=== PATIENT | female | born 1930 | race Caucasian/White ===

== ENCOUNTER 2016-11-26 13:51 | Emergency (ER) | payer OTHER ==
[2016-11-26 13:59] VITALS: BP 140/76; TEMP 99.2; BMI 21.0
[2016-11-26 15:31] LABS: BASOPHILS # (AUTO) 0.1 K/uL (0-0.2); BASOPHILS % (AUTO) 0.6 % (0.0-3.0); EOSINOPHILS # (AUTO) 0.2 K/ul (0.0-0.7); EOSINOPHILS % (AUTO) 1.4 % (0.0-7.0); HEMATOCRIT 37.2 % (37.0-47.0); IMMATURE GRANULOCYTE % (AUTO) 0.5 % (0.0-5.0); LYMPHOCYTES # (AUTO) 1.9 K/uL (0.60-3.4); LYMPHOCYTES % (AUTO) 12.8 (10.0-50.0); MEAN CORPUSCULAR HEMOGLOBIN 28.8 pg (27.0-31.0); MEAN CORPUSCULAR HGB CONC 32.3 (31.8-35.4); MEAN CORPUSCULAR VOLUME 89.2 fl (81.0-99.0); MONOCYTES # (AUTO) 1.3 K/uL (0.4-2.0); MONOCYTES % (AUTO) 8.9 (0-10); NEUTROPHILS # (AUTO) 11.3 K/ul (2.0-6.9); NEUTROPHILS % (AUTO) 75.8; PLATELET COUNT 303 10^3/uL (140-440); RED BLOOD COUNT 4.17 10^6/ul (4.20-5.40); WHITE BLOOD COUNT 14.88 K/ul (4.6-10.2)
[2016-11-26 15:53] LABS: FLU INTERNAL QC INTERNAL QC VALID; RAPID FLU A NEGATIVE (NEGATIVE); RAPID FLU B NEGATIVE (NEGATIVE)
[2016-11-26 15:57] LABS: ALANINE AMINOTRANSFERASE 12 U/L (12-78); ALBUMIN 3.3 g/dL (3.4-5.0); ALBUMIN/GLOBULIN RATIO 0.97; ALKALINE PHOSPHATASE 83 U/L (53-141); ANION GAP 11.6; ASPARTATE AMINO TRANSFERASE 15 U/L (15-37); BILIRUBIN,TOTAL 0.37 mg/dL (0.00-1.20); BLOOD UREA NITROGEN 14 mg/dL (7-18); CARBON DIOXIDE 26 mmol/L (23-31); CHLORIDE 106 mmol/L (98-107); CREATINE KINASE 28 U/L; GLUCOSE 103 mg/dL (82-115); POTASSIUM 4.6 mmol/L (3.5-5.10); SODIUM 139 mmol/L (136-145); TOTAL PROTEIN 6.7 g/dL (5.8-8.1)
--- NOTE | 2016-11-26 16:00 | DI ---
EXAM: Chest two views HISTORY: Cough COMPARISON: None TECHNIQUE: Two views of the chest were performed FINDINGS: The lungs are clear. There is no pleural effusion or pneumothorax. The heart is normal in size. 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 The mediastinal contour is normal. Right hilar granulomatous c alcification. There are median sternotomy wires. There are no acute abnormalities of the bones. IMPRESSION: No acute cardiopulmonary process.
[2016-11-26] MEDS ORDERED: PREDNISONE PO STA (16:57)
[2016-11-26] MEDS ORDERED: ZITHROMAX PO STA (16:57)
--- NOTE | 2016-11-26 17:00 | ED.PDOC ---
General ED Provider: Dr. MAKENNA WISDOM Chief Complaint: Respiratory Complaint Stated Complaint: cough, flu like symptoms Time Seen by Physician: 14:00 Mode of Arrival: Walk-In Information Source: Patient, Family Exam Limitations: No limitations Primary Care Provider: CHERYL TELLO Nursing and Triage Documentation Reviewed and Agree: Yes Respiratory Complaint Exam - Respiratory Complaint/Exam Symptoms Are: Resolved Timing: Intermittent Initial Severity: Moderate Current Severity: Mild Location: Nose, Throat, Chest Character: Reports: Non-productive cough Alleviating: Reports: Spontaneous resolution Associated Signs and Symptoms: Reports: Nasal congestion, Sore throat, Decreased oral intake History of Healthcare-Acquired Pneumonia: No Related Surgical History: Reports: None Pulmonary Embolism Risk Factors: None Review of Systems - Review Of Systems Constitutional: Reports: Malaise, Weakness, Loss of appetite Eyes: Reports: No symptoms Ears, Nose, Mouth, Throat: Reports: Throat pain Respiratory: Reports: Cough Cardiac: Reports: No symptoms GI: Reports: No symptoms : Reports: No symptoms Musculoskeletal: Reports: No symptoms Skin: Reports: No symptoms Neurological: Reports: No symptoms Endocrine: Reports: No symptoms Hematologic/Lymphatic: Reports: No symptoms All Other Systems: Reviewed and Negative Past Medical History - Past Medical History Previously Healthy: No Endocrine: Reports: None Cardiovascular: Reports: Hypertension Respiratory: Reports: None Hematological: Reports: None Gastrointestinal: Reports: GERD Genitourinary: Reports: None Neuro/Psych: Reports: None Musculoskeletal: Reports: None Cancer: Reports: None Last Menstrual Period: menopause - Surgical History General Surgical History: Reports: None - Family History Family History: Reports: None - Social History Smoking Status: Never smoker Hx Substance Use: No Alcohol Screening: None Physical Exam - Physical Exam Appearance: Well-appearing, No pain distress, Well-nourished Eyes: CORBY, EOMI, Conjunctiva clear ENT: Ears normal, Nose normal, Oropharynx normal Respiratory: Airway patent, Breath sounds clear, Breath sounds equal, Respirations nonlabored Cardiovascular: RRR, Pulses normal, No rub, No murmur GI/: Soft, Nontender, No masses, Bowel sounds normal, No Organomegaly Musculoskeletal: Normal strength, ROM intact, No edema, No calf tenderness Skin: Warm, Dry, Normal color Neurological: Sensation intact, Motor intact, Reflexes intact, Cranial nerves intact, Alert, Oriented Psychiatric: Affect appropriate, Mood appropriate Interpretation - Radiology Interpretation Radiology Interpretation By: Radiologist Radiology Results: No acute changes Critical Care Note - Critical Care Note Total Time (mins): 0 Course - Course Hematology/Chemistry: 11/26/16 15:23 11/26/16 15:23 Orders, Labs, Meds: Lab Review 11/26/16 11/26/16 15:23 15:30 WBC 14.88 H RBC 4.17 L Hgb 12.0 Hct 37.2 MCV 89.2 MCH 28.8 MCHC 32.3 RDW Coeff of Rosemary 13.9 Plt Count 303 Immature Gran % (Auto) 0.5 Neut % (Auto) 75.8 Lymph % (Auto) 12.8 [place] % (Auto) 8.9 Eos % (Auto) 1.4 Baso % (Auto) 0.6 Immature Gran # (Auto) 0.1 Neut # 11.3 H Lymph # 1.9 [place] # 1.3 Eos # 0.2 Baso # 0.1 Sodium 139 Potassium 4.6 Chloride 106 Carbon Dioxide 26 Anion Gap 11.6 BUN 14 Creatinine 0.80 Estimated GFR (MDRD) 68.00 BUN/Creatinine Ratio 17.50 Glucose 103 Calcium 9.0 Total Bilirubin 0.37 AST 15 ALT 12 Alkaline Phosphatase 83 Total Creatine Kinase 28 Troponin I < 0.0100 Total Protein 6.7 Albumin 3.3 L Globulin 3.4 Albumin/Globulin Ratio 0.97 Influenza A (Rapid) Negative Influenza B (Rapid) Negative Orders Category Date Time Status CBC W/ AUTO DIFF Stat LAB 11/26/16 15:23 Completed COMPREHENSIVE METABOLIC PANEL Stat LAB 11/26/16 15:23 Completed CREATINE KINASE Stat LAB 11/26/16 15:23 Completed MOLECULAR GROUP A STREP Stat LAB 11/26/16 15:30 Results RAPID FLU A/B Stat LAB 11/26/16 15:30 Completed STREP SCREEN Stat LAB 11/26/16 15:30 Results TROPONIN I Stat LAB 11/26/16 15:23 Completed Azithromycin [Zithromax] MEDS 11/26/16 16:57 Stat 500 mg PO ONCE STA Prednisone MEDS 11/26/16 16:57 Stat 20 mg PO ONCE STA CHEST, 2 VIEWS PA & LAT Stat RADS 11/26/16 15:22 Completed Medications Discontinued Medications Generic Name Dose Route Start Last Admin Trade Name Freq PRN Reason Stop Dose Admin Azithromycin 500 mg 11/26/16 16:57 Zithromax PO 11/26/16 16:58 ONCE STA Prednisone 20 mg 11/26/16 16:57 Prednisone PO 11/26/16 16:58 ONCE STA Vital Signs: Temp Pulse Resp BP Pulse Ox 11/26/16 13:51 99.2 F 78 20 140/76 98 Departure - Departure Time of Disposition: 17:00 Disposition: HOME SELF-CARE Discharge Problem: Bronchitis Instructions: Acute Bronchitis (ED), Bronchospasm (ED), Wheezing (ED), How Your Lungs Work (ED) Condition: Good Pt referred to PMD for follow-up: No Additional Instructions: Please call your Family Physician as soon as possible to schedule a follow-up appointment. Allergies/Adverse Reactions: Allergies acetaminophen [From Tylenol] Adverse Reaction (Verified 11/26/16 14:01) aspirin Adverse Reaction (Verified 11/26/16 14:01) Home Medications: Ambulatory Orders Lisinopril 10 mg PO DAILY 02/14/15 Beta-Carotene(A) W-C & E/Min [Vision Vitamins] 1 each PO DAILY 11/26/16 Calcium Carb & Citrate/Vit D3 [Citracal + D ER Tablet] 1 each PO BID 11/26/16 Cetirizine HCl [Allergy Relief] 10 mg PO DAILY 11/26/16 Cholecalciferol (Vitamin D3) [Vitamin D3] 2,000 unit PO DAILY 11/26/16 Omeprazole [Prilosec] 20 mg PO QDAC 11/26/16 Oxycodone HCl [Oxycodone] 5 mg PO Q6H 11/26/16
== END 2016-11-26 17:17 | disposition home or self-care (01) ==
LOC: ED 13:51
DX: J20.9 Acute bronchitis, unspecified (principal)
CPT/HCPCS: 36415; 80053; 82550; 84484; 85025; 87651; 87804; 87880; 99282

== ENCOUNTER 2017-08-30 16:04 | Emergency (ER) ==
[2017-08-30 16:08] VITALS: BP 165/81; TEMP 97.8; BMI 19.7
[2017-08-30] MEDS ORDERED: LIDOCAINE HCL 1% SDV SUBCUT STA (16:18)
[2017-08-30] MEDS ORDERED: ROCEPHIN IM STA (16:18)
[2017-08-30] MEDS ORDERED: DECADRON 4 MG/ML SDV IM STA (16:18)
[2017-08-30] MEDS ORDERED: ZITHROMAX PO STA (16:18)
--- NOTE | 2017-08-30 16:24 | ED.PDOC ---
General ED Provider: Dr. MAKENNA WISDOM Chief Complaint: Cough Stated Complaint: cough, flu like symptoms Time Seen by Physician: 16:00 Mode of Arrival: Walk-In Information Source: Patient Exam Limitations: No limitations Primary Care Provider: CHERYL TELLO Nursing and Triage Documentation Reviewed and Agree: Yes Reviewed sepsis parameters & appropriate labs ordered?: Yes (seen with december atll times ) System Inflammatory Response Syndrome: Not Applicable Sepsis Protocol: For patient's 13 years and over: Temp is 96.8 and below OR 101 and greater Pulse >90 BPM Resp >20/minute Acutely Altered Mental Status Are patient's symptoms suggestive of a new infection, such as: -Pneumonia -Skin, Soft Tissue -Endocarditis -UTI -Bone, Joint Infection -Implantable Device -Acute Abdominal Infection -Wound Infection -Meningitis -Blood Stream Catheter Infection -Unknown Respiratory Complaint Exam - Respiratory Complaint/Exam Onset/Duration: 2 days Symptoms Are: Still present Timing: Constant Initial Severity: Mild Current Severity: Mild Location: Nose, Throat, Chest Character: Reports: Non-productive cough Aggravating: Reports: None Associated Signs and Symptoms: Reports: URI, Nasal congestion. Denies: Rapid breathing, Dyspnea, Fever, Chills, Chest pain, Pleuritic chest pain, Wheezing, Hemoptysis, Dizziness, Calf pain, Calf swelling, Edema, Hoarseness, Sinus discomfort, Vomiting, Sore throat, Weight loss, Decreased oral intake, Increased thirst, Increased appetite Related History: Reports: Similar episode History of Healthcare-Acquired Pneumonia: No Related Surgical History: Reports: None Pulmonary Embolism Risk Factors: None Cardiac Risk Factors: Reports: Hypertension Pseudomonas Risk Factors: Reports: None Tuberculosis Risk Factors: Reports: None Status Asthmaticus Risk Factors: Reports: None Home Oxygen Use: No Recent Stress Test: No Recent Echo/LV Function: No Current Antibiotic Use: No Current Asthma Medication Use: No Respiratory Distress: None Inadequate Respiratory Effort: No Dysphagia Present: No Stridor Present: No JVD Present: No Accessory Muscle Use: No Retractions: Not Present Grunting Respirations: No Kussmaul Respirations: No Differential Diagnoses: Pneumonia, Bronchitis Review of Systems - Review Of Systems Constitutional: Reports: No symptoms Eyes: Reports: No symptoms Ears, Nose, Mouth, Throat: Reports: No symptoms Respiratory: Reports: Cough Cardiac: Reports: No symptoms GI: Reports: No symptoms : Reports: No symptoms Musculoskeletal: Reports: No symptoms Skin: Reports: No symptoms Neurological: Reports: No symptoms Endocrine: Reports: No symptoms Hematologic/Lymphatic: Reports: No symptoms All Other Systems: Reviewed and Negative Past Medical History - Past Medical History Previously Healthy: No Endocrine: Reports: None Cardiovascular: Reports: Hypertension Respiratory: Reports: None Hematological: Reports: None Gastrointestinal: Reports: GERD Genitourinary: Reports: None Neuro/Psych: Reports: None Musculoskeletal: Reports: None Cancer: Reports: None Last Menstrual Period: N/A - Surgical History General Surgical History: Reports: None - Family History Family History: Reports: None - Social History Smoking Status: Never smoker Hx Substance Use: No Alcohol Screening: None - Immunizations Tetanus Shot up to Date: No Physical Exam - Physical Exam Appearance: Well-appearing, No pain distress, Well-nourished Eyes: CORBY, EOMI, Conjunctiva clear ENT: Ears normal, Nose normal, Oropharynx normal Respiratory: Airway patent, Breath sounds equal, Respirations nonlabored, Rhonchi Cardiovascular: RRR, Pulses normal, No rub, No murmur GI/: Soft, Nontender, No masses, Bowel sounds normal, No Organomegaly Musculoskeletal: Normal strength, ROM intact, No edema, No calf tenderness Skin: Warm, Dry, Normal color Neurological: Sensation intact, Motor intact, Reflexes intact, Cranial nerves intact, Alert, Oriented Psychiatric: Affect appropriate, Mood appropriate Critical Care Note - Critical Care Note Total Time (mins): 0 Course - Course Orders, Labs, Meds: Orders Category Date Time Status Azithromycin [Zithromax] MEDS 08/30/17 16:18 Stat 250 mg PO ONCE STA Ceftriaxone Sodium [Rocephin] MEDS 08/30/17 16:18 Stat 1 gm IM ONCE STA Dexamethasone 4 mg/ml Inj [Decadron 4 mg/ml Sdv] MEDS 08/30/17 16:18 Stat 4 mg IM ONCE STA Lidocaine HCl/Pf [Lidocaine HCl 1% Sdv] MEDS 08/30/17 16:18 Stat 5 ml SUBCUT ONCE STA Medications Discontinued Medications Generic Name Dose Route Start Last Admin Trade Name Freq PRN Reason Stop Dose Admin Azithromycin 250 mg 08/30/17 16:18 Zithromax PO 08/30/17 16:19 ONCE STA Ceftriaxone Sodium 1 gm 08/30/17 16:18 Rocephin IM 08/30/17 16:19 ONCE STA Dexamethasone Sodium Phosphate 4 mg 08/30/17 16:18 Decadron 4 Mg/Ml Sdv IM 08/30/17 16:19 ONCE STA Lidocaine HCl 5 ml 08/30/17 16:18 Lidocaine Hcl 1% Sdv SUBCUT 08/30/17 16:19 ONCE STA Vital Signs: Temp Pulse Resp BP Pulse Ox 08/30/17 16:05 97.8 F 74 20 165/81 H 98 Departure - Departure Time of Disposition: 16:23 Disposition: HOME SELF-CARE Discharge Problem: Cough, Viral syndrome Instructions: Viral Syndrome (ED) Condition: Good Pt referred to PMD for follow-up: Yes Additional Instructions: Please call your Family Physician as soon as possible to schedule a follow-up appointment. Allergies/Adverse Reactions: Allergies acetaminophen [From Tylenol] Adverse Reaction (Verified 08/30/17 16:08) aspirin Adverse Reaction (Verified 08/30/17 16:08) Home Medications: Ambulatory Orders Lisinopril 10 mg PO DAILY 02/14/15 Beta-Carotene(A)-Vits C,E/Mins [Vision Vitamins] 1 each PO DAILY 11/26/16 Calcium Carb, Citrate/Vit D3 [Citracal + D ER Tablet] 1 each PO BID 11/26/16 Cetirizine HCl [Allergy Relief] 10 mg PO DAILY 11/26/16 Cholecalciferol (Vitamin D3) [Vitamin D3] 2,000 unit PO DAILY 11/26/16 Omeprazole [Prilosec] 20 mg PO QDAC 11/26/16 Oxycodone HCl [Oxycodone] 5 mg PO Q6H 11/26/16 Meloxicam 15 mg PO DAILY 08/30/17
== END 2017-08-30 16:50 | disposition home or self-care (01) ==
LOC: ED 16:04
DX: B34.9 Viral infection, unspecified (principal); I10 Essential (primary) hypertension
CPT/HCPCS: 96372; 99283

== ENCOUNTER 2019-05-07 06:41 | Inpatient (IN) ==
[2019-05-07] MEDS ORDERED: ZOFRAN 4 MG/2 ML IVP STA (06:47)
[2019-05-07] MEDS ORDERED: GI COCKTAIL PO STA (06:47)
[2019-05-07] MEDS ORDERED: SODIUM CHLORIDE 1,000 ML IV STA (06:47)
--- NOTE | 2019-05-07 07:15 | ED.PDOC ---
General ED Provider: Dr. CHERYL LACY Chief Complaint: Chest Pain Stated Complaint: Chest Pain, Cough, Acid Reflux and Fever. Patients daughter States she experienced severe GERD symptoms last evening and intermittent sharp mid chest pain. Non-productive cough started today.This AM had onset of temperature elevation. Time Seen by Physician: 07:05 Mode of Arrival: Wheelchair Information Source: Patient, Family Exam Limitations: No limitations Primary Care Provider: CHERYL PORTER Nursing and Triage Documentation Reviewed and Agree: Yes Does patient meet sepsis criteria?: Yes If yes, has appropriate treatment been initiated?: Yes System Inflammatory Response Syndrome: Temp 101F or Greater, Pulse >90 BPM, Resp >20/Minute Sepsis Protocol: For patient's 13 years and over: Temp is 96.8 and below OR 101 and greater Pulse >90 BPM Resp >20/minute Acutely Altered Mental Status Are patient's symptoms suggestive of a new infection, such as: -Pneumonia -Skin, Soft Tissue -Endocarditis -UTI -Bone, Joint Infection -Implantable Device -Acute Abdominal Infection -Wound Infection -Meningitis -Blood Stream Catheter Infection -Unknown Respiratory Complaint Exam - Respiratory Complaint/Exam Onset/Duration: Earlier this AM Symptoms Are: Still present Timing: Intermittent Initial Severity: Moderate Current Severity: Mild Location: Chest Character: Reports: Non-productive cough Aggravating: Reports: Recumbent position Alleviating: Reports: None Associated Signs and Symptoms: Reports: Fever, Chills, Chest pain, Pleuritic chest pain. 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 Pulmonary Embolism Risk Factors: None Cardiac Risk Factors: Reports: CAD, Hypertension Pseudomonas Risk Factors: Reports: None Tuberculosis Risk Factors: Reports: None Status Asthmaticus Risk Factors: Reports: None Home Oxygen Use: No Recent Stress Test: No Recent Echo/LV Function: No Current Antibiotic Use: No Current Asthma Medication Use: No Respiratory Distress: None Inadequate Respiratory Effort: No Dysphagia Present: No Stridor Present: No JVD Present: No Accessory Muscle Use: No Retractions: Not Present, Diaphragmatic Diminished Breath Sounds: No Sinus Tenderness: None Grunting Respirations: No Kussmaul Respirations: No Differential Diagnoses: Pneumonia, GERD, URI Non-Traumatic Chest Pain Syncope: EKG Performed Review of Systems - Review Of Systems Constitutional: Reports: Chills, Fever, Weakness Eyes: Reports: No symptoms Ears, Nose, Mouth, Throat: Reports: No symptoms Respiratory: Reports: Cough, Short of air Cardiac: Reports: Chest pain GI: Reports: Nausea, Other (GASTRIC REFLUX) : Reports: No symptoms Musculoskeletal: Reports: No symptoms Skin: Reports: No symptoms Neurological: Reports: No symptoms Endocrine: Reports: No symptoms Hematologic/Lymphatic: Reports: No symptoms All Other Systems: Reviewed and Negative Past Medical History - Past Medical History Previously Healthy: No Endocrine: Reports: None Cardiovascular: Reports: Hypertension Respiratory: Reports: None Hematological: Reports: None Gastrointestinal: Reports: GERD Genitourinary: Reports: None Neuro/Psych: Reports: None Musculoskeletal: Reports: None Cancer: Reports: None Last Menstrual Period: menopausal - Surgical History General Surgical History: Reports: None - Family History Family History: Reports: None - Social History Smoking Status: Never smoker Hx Substance Use: No Alcohol Screening: None - Immunizations Tetanus Shot up to Date: No Physical Exam - Physical Exam Appearance: Ill-appearing, Thin Ill-appearing: Moderate Pain Distress: Mild Eyes: CORBY, EOMI, Conjunctiva clear ENT: Ears normal, Nose normal, Oropharynx normal Neck: Supple Respiratory: Breath sounds diminished Cardiovascular: RRR, Pulses normal, No rub, No murmur GI/: Soft, Nontender, No masses, Bowel sounds normal, No Organomegaly Musculoskeletal: Normal strength, ROM intact, No edema, No calf tenderness Skin: Warm Neurological: Sensation intact, Motor intact, Reflexes intact, Cranial nerves intact, Alert, Oriented Psychiatric: Affect appropriate, Mood appropriate Interpretation - Radiology Interpretation Exam Interpreted: CXR (Pneumonia-Rt Perihilar opacities) - EKG Interpretation Time of EKG #1: 06:40 Rate: Normal Rhythm: Sinus Ectopy: None [place]: Left ST Segment: Normal Interpretation: LAD, OLD SEPTAL INFARCT Re-Evaluation - Re-Evaluation Time of Re-Evaluation: 08:25 Status: Unchanged Vital Signs Stable: Yes Appearance: NAD Lungs: Clear Skin: Warm and Dry Neuro: Alert and Oriented X3 CV: RRR Physician Notification - Case Discussed Physician Notified: Dr Porter Time of Notification: 08:30 (Agrees with Admit/IV antibiotic) Critical Care Note - Critical Care Note Total Time (mins): 30 Course - Course Hematology/Chemistry: 05/07/19 07:03 05/07/19 07:03 Orders, Labs, Meds: Lab Review 05/07/19 05/07/19 05/07/19 07:03 07:03 07:03 WBC 18.79 H RBC 3.82 L Hgb 11.3 L Hct 35.2 L MCV 92.1 MCH 29.6 MCHC 32.1 RDW Coeff of Rosemary 12.7 Plt Count 298 Immature Gran % (Auto) 0.4 Neut % (Auto) 87.6 Lymph % (Auto) 3.[address] [place] % (Auto) 7.9 Eos % (Auto) 0.2 Baso % (Auto) 0.4 Immature Gran # (Auto) 0.1 Neut # (Auto) 16.5 H Lymph # (Auto) 0.7 [place] # (Auto) 1.5 Eos # (Auto) 0.0 Baso # (Auto) 0.1 Sodium 137.8 Potassium 3.99 Chloride 107.7 H Carbon Dioxide 20.8 L Anion Gap 13.29 BUN 30.3 H Creatinine 0.95 Estimated GFR (MDRD) 56.00 BUN/Creatinine Ratio 31.89 Glucose 118.0 H Lactic Acid Calcium 9.55 Total Bilirubin 0.43 AST 24.5 ALT 15.0 Alkaline Phosphatase 109.3 Total Creatine Kinase 63.9 Troponin I < 0.012 Total Protein 7.32 Albumin 4.08 Globulin 3.24 Albumin/Globulin Ratio 1.25 Procalcitonin 0.09 05/07/19 07:03 WBC RBC Hgb Hct MCV MCH MCHC RDW Coeff of Rosemary Plt Count Immature Gran % (Auto) Neut % (Auto) Lymph % (Auto) [place] % (Auto) Eos % (Auto) Baso % (Auto) Immature Gran # (Auto) Neut # (Auto) Lymph # (Auto) [place] # (Auto) Eos # (Auto) Baso # (Auto) Sodium Potassium Chloride Carbon Dioxide Anion Gap BUN Creatinine Estimated GFR (MDRD) BUN/Creatinine Ratio Glucose Lactic Acid 1.22 Calcium Total Bilirubin AST ALT Alkaline Phosphatase Total Creatine Kinase Troponin I Total Protein Albumin Globulin Albumin/Globulin Ratio Procalcitonin Orders Category Date Time Status EKG-(ED ONLY) Stat CARDIO 05/07/19 06:47 Completed OXYGEN Routine CARDIO 05/07/19 08:40 Active ACTIVITY .BR with BRP CARE 05/07/19 08:41 Completed BLOOD GLUCOSE MONITORING 0630,1100,1700,2100 CARE 05/07/19 08:42 Active INTAKE & OUTPUT Q8HR CARE 05/07/19 08:40 Active VITAL SIGNS Q4HR CARE 05/07/19 08:41 Completed SOFT DIET DIETARY 05/07/19 Breakfast Ordered ED PLATE PRINTER APPLIED .ONCE EMERGENCY 05/07/19 06:47 Active BLOOD CULTURE (ED ONLY) Stat LAB 05/07/19 07:03 Received CBC W/ AUTO DIFF Stat LAB 05/07/19 07:03 Completed COMPREHENSIVE METABOLIC PANEL Stat LAB 05/07/19 07:03 Completed CREATINE KINASE Stat LAB 05/07/19 07:03 Completed LACTIC ACID Stat LAB 05/07/19 07:03 Completed PROCALCITONIN Stat LAB 05/07/19 07:03 Completed TROPONIN I Stat LAB 05/07/19 07:03 Completed Acetaminophen [Tylenol] MEDS 05/07/19 07:30 Discontinued 650 mg PO ONCE STA Ceftriaxone/D5w 1 gm Premix [Rocephin 1 gm Premix] MEDS 05/07/19 08:24 Discontinued 1 gm in 50 ml IV ONCE Doxycycline Hyclate Inj [Doxy-100] 100 mg MEDS 05/07/19 09:00 Active 0.9 % Sodium Chloride [Sodium Chloride] 100 ml IV Q12HR Hydrocodone Bit/Acetaminophen [[place] 7.5-325] MEDS 05/07/19 08:46 Active 1 tab PO Q8HR PRN Ibuprofen [Motrin] MEDS 05/07/19 08:40 Active 600 mg PO Q6H PRN Lisinopril [Zestril] MEDS 05/07/19 09:00 Active 10 mg PO DAILY Mag-Al Plus//Lidocaine [Gi Cocktail] MEDS 05/07/19 06:47 Discontinued 30 ml PO ONCE STA Ondansetron HCl/Pf [Zofran 4 mg/2 ml] MEDS 05/07/19 06:47 Discontinued 4 mg IVP ONCE STA Pantoprazole Sodium [Protonix] MEDS 05/07/19 09:00 Active 40 mg PO QDAC Sodium Chloride 0.9% [Sodium Chloride] 1,000 ml MEDS 05/07/19 06:47 Discontinued IV 125 mls/hr RESUSCITATION STATUS Routine OTHERS 05/07/19 08:40 Completed CHEST, 1V AP ONLY Stat RADS 05/07/19 06:47 Completed Medications Generic Name Dose Route Start Last Admin Trade Name Beti PRN Reason Stop Dose Admin Hydrocodone Bitart/Acetaminophen 1 tab 05/07/19 08:46 05/07/19 15:52 [place] 7.5-325 PO 1 tab Q8HR PRN Administration Pain Amlodipine Besylate 2.5 mg 05/07/19 10:00 05/07/19 10:12 Norvasc PO 2.5 mg DAILY DEMIAN Administration Calcium/Vitamin D 1 each 05/07/19 09:00 05/07/19 10:12 Calcium 500 + Vit D 200 Mg Tablet PO 1 each BID DEMIAN Administration Doxycycline Hyclate 100 mg/ 100 mls @ 50 mls/hr 05/07/19 09:00 05/07/19 10:11 Sodium Chloride IV 05/10/19 08:59 50 mls/hr Q12HR DEMIAN Administration CEFTRIAXONE/D5W 1 GM PREMIX 1 gm in 50 mls @ 75 mls/hr 05/08/19 09:00 Rocephin 1 Gm Premix IV 05/11/19 08:59 DAILY DEMIAN Ibuprofen 600 mg 05/07/19 08:40 Motrin PO Q6H PRN Mild Pain Lisinopril 10 mg 05/07/19 09:00 05/07/19 10:12 Zestril PO 10 mg DAILY DEMIAN Administration Meloxicam 15 mg 05/07/19 09:30 Mobic PO BID PRN JOINT PAIN Pantoprazole Sodium 40 mg 05/07/19 09:00 05/07/19 10:12 Protonix PO 40 mg QDAC DEMIAN Administration Discontinued Medications Generic Name Dose Route Start Last Admin Trade Name Beti PRN Reason Stop Dose Admin Acetaminophen 650 mg 05/07/19 07:30 05/07/19 08:01 Tylenol PO 05/07/19 07:31 Not Given ONCE STA Al Hydroxide/Mg Hydroxide 30 ml 05/07/19 06:47 05/07/19 07:02 Gi Cocktail PO 05/07/19 06:48 30 ml ONCE STA Administration Sodium Chloride 1,000 mls @ 125 mls/hr 05/07/19 06:47 05/07/19 06:59 Sodium Chloride IV 05/07/19 14:46 125 mls/hr .Q8H STA Administration CEFTRIAXONE/D5W 1 GM PREMIX 1 gm in 50 mls @ 75 mls/hr 05/07/19 08:24 08:32 Rocephin 1 Gm Premix IV 05/07/19 09:03 75 mls/hr ONCE STA Administration Meloxicam 15 mg 05/07/19 09:28 Mobic PO BID PRN Pain Ondansetron HCl 4 mg 05/07/19 06:47 05/07/19 07:02 Zofran 4 Mg/2 Ml IVP 05/07/19 06:48 4 mg ONCE STA Administration Vital Signs: Temp Pulse Resp BP Pulse Ox 05/07/19 08:59 98.9 F 05/07/19 06:41 101.5 F H 94 H 26 H 132/72 96 Departure - Departure Time of Disposition: 08:30 Disposition: ADMITTED INPATIENT Discharge Problem: Acute pneumonia, Sepsis Condition: Stable Pt referred to PMD for follow-up: Yes IPMP verified?: No Allergies/Adverse Reactions: Allergies acetaminophen [From Tylenol] Adverse Reaction (Verified 05/07/19 06:48) aspirin Adverse Reaction (Verified 05/07/19 06:48) Home Medications: Ambulatory Orders Lisinopril 10 mg PO DAILY 02/14/15 Calcium Carb, Citrate/Vit D3 [Citracal + D ER Tablet] 1 each PO BID 11/26/16 Meloxicam 15 mg PO BID PRN 08/30/17 Amlodipine Besylate [Norvasc] 2.5 mg PO DAILY 05/07/19 Hydrocodone Bit/Acetaminophen [[place] 7.5-325] 1 each PO Q8HR PRN 05/07/19 Pantoprazole Sodium [Protonix] 40 mg PO QDAC 05/07/19 Disposition Discussed With: Patient, Family, Other (Dr Porter)
--- NOTE | 2019-05-07 07:25 | DI ---
EXAM: Chest one view HISTORY: Chest pain COMPARISON: 11/26/2016 TECHNIQUE: Single view of the chest was performed FINDINGS: Stable cardiomediastinal silhouette with operative changes. Right perihilar and basilar in terstitial opacities. No pneumothorax or pleural effusion. There are no acute abnormalities of the bones. IMPRESSION: Right perihilar interstitial opacities, which may represent pneumonia/atypical infection versus component edema.
[2019-05-07] MEDS ORDERED: TYLENOL PO STA (07:30)
[2019-05-07] MEDS ORDERED: ROCEPHIN 1 GM/50 ML D5W 1 GM/50 ML BAG IV STA (08:24)
[2019-05-07] MEDS ORDERED: NON-FORMULARY MEDICATION (Meloxicam [Meloxicam] 15 MG) PO PRN (08:46)
[2019-05-07] MEDS ORDERED: CALCIUM CARB CITRATE PO SCH (09:00)
[2019-05-07] MEDS ORDERED: VIT D3 PO SCH (09:00)
[2019-05-07] MEDS ORDERED: NON-FORMULARY MEDICATION (Amlodipine Besylate [Norvasc] 2.5 MG) PO SCH (09:00)
[2019-05-07] MEDS ORDERED: MOBIC PO PRN ×2 (09:28→09:30)
[2019-05-07 09:41] VITALS: BMI 19.4
[2019-05-07] MEDS: DOXY-100 100 MG in SODIUM CHLORIDE 100 ML IV SCH ×2 (10:11→20:47)
[2019-05-07] MEDS: CALCIUM 500 + VIT D 200 MG TABLET PO SCH ×2 (10:12→20:47)
[2019-05-07] MEDS: NORVASC PO SCH (10:12)
[2019-05-07] MEDS: PROTONIX PO SCH (10:12)
[2019-05-07] MEDS: ZESTRIL PO SCH (10:12)
[2019-05-07] MEDS: NORCO 7.5-325 PO PRN (15:52)
[2019-05-08] MEDS: PROTONIX PO SCH (05:37)
[2019-05-08] MEDS: CALCIUM 500 + VIT D 200 MG TABLET PO SCH ×2 (08:37→20:05)
[2019-05-08] MEDS: NORVASC PO SCH (08:37)
[2019-05-08] MEDS: ZESTRIL PO SCH (08:37)
[2019-05-08] MEDS: DOXY-100 100 MG in SODIUM CHLORIDE 100 ML IV SCH ×2 (08:37→20:05)
[2019-05-08] MEDS ORDERED: ROCEPHIN 1 GM VIAL 1 GM in SODIUM CHLORIDE 50 ML IV SCH (09:00)
[2019-05-08] MEDS: ROCEPHIN 1 GM/50 ML D5W 1 GM/50 ML BAG IV SCH (13:42)
[2019-05-08] MEDS: NORCO 7.5-325 PO PRN (15:59)
[2019-05-08] MEDS: MOTRIN PO PRN (20:05)
[2019-05-09] MEDS: PROTONIX PO SCH (05:30)
[2019-05-09] MEDS: ZESTRIL PO SCH (08:53)
[2019-05-09] MEDS: CALCIUM 500 + VIT D 200 MG TABLET PO SCH ×2 (08:53→20:05)
[2019-05-09] MEDS: ROCEPHIN 1 GM/50 ML D5W 1 GM/50 ML BAG IV SCH (08:53)
[2019-05-09] MEDS: MOTRIN PO PRN ×2 (08:53→23:18)
[2019-05-09] MEDS: NORVASC PO SCH (08:53)
[2019-05-09] MEDS: DOXY-100 100 MG in SODIUM CHLORIDE 100 ML IV SCH ×2 (09:44→20:05)
[2019-05-10] MEDS: PROTONIX PO SCH (05:39)
[2019-05-10] MEDS: CALCIUM 500 + VIT D 200 MG TABLET PO SCH (08:14)
[2019-05-10] MEDS: ROCEPHIN 1 GM/50 ML D5W 1 GM/50 ML BAG IV SCH (08:14)
[2019-05-10] MEDS: NORVASC PO SCH (08:14)
[2019-05-10] MEDS: ZESTRIL PO SCH (08:14)
[2019-05-10 16:15] VITALS: BP 116/64; TEMP 98.4
--- NOTE | 2019-07-14 13:43 | HP ---
CHIEF COMPLAINT: "She had real bad reflux and now she is coughing and she has fever." DISCUSSION: This is a very pleasant 88-year-old lady who presented to the Emergency Department. She had had GERD symptoms with heartburn, indigestion, cough productive of purulent sputum. She had a temperature of 102, presented to the Emergency Department. She was evaluated by Dr. Ramirez and found to have evidence of pneumonia and possible sepsis. She had a temperature of 101.5 in the Emergency Department. Because of her age and comorbid factors, she was thought not to be a candidate for outpatient treatment and was admitted to my services for IV antibiotics and treatment of a pneumonia. PAST MEDICAL HISTORY: MEDICATIONS: Lisinopril Meloxicam Norvasc Hydrocodone Protonix ALLERGIES: ACETAMINOPHEN, ASPIRIN PAST MEDICAL HISTORY: History of hypertension History of GERD PAST SURGICAL HISTORY: Denies any previous surgeries. SOCIAL HISTORY: Nonsmoker. No alcohol use is noted. FAMILY HISTORY: Reviewed with no familial tendancies. REVIEW OF SYSTEMS: Denies sore throat. She has had a cough with purulent sputum. Denies hemoptysis, abdominal pain, blood in the stool, urinary symptoms or seizures. PHYSICAL EXAMINATION: V/S: Temperature 101.8, pulse 90, respiratory rate 18, BP 120/80. HEENT: Pupils are round. NECK: Supple. CHEST: Reveals rales and scattered rhonchi. CARDIOVASCULAR: Regular rate and rhythm. ABDOMEN: Soft, nontender. EXTREMITIES: Distal extremities without cyanosis or edema. ASSESSMENT: 1. PNEUMONIA. PLAN: I agree. I don't think that she would be a good candidate for outpatient treatment. She is admitted with IV antibiotics, pulmonary updraft, treatment of fever. We are going to monitor oximetry. Please see orders. MTDD
--- NOTE | 2019-07-14 13:59 | DS ---
PRINCIPAL DIAGNOSIS: 1. COMMUNITY ACQUIRED PNEUMONIA DISCUSSION: This is a very pleasant 88-year-old lady who presented to the Emergency Department. She had had GERD symptoms with heartburn, indigestion, cough productive of purulent sputum. She had a temperature of 102, presented to the Emergency Department. She was evaluated by Dr. Ramirez and found to have evidence of pneumonia and possible sepsis. She had a temperature of 101.5 in the Emergency Department. Because of her age and comorbid factors, she was thought not to be a candidate for outpatient treatment and was admitted to my services for IV antibiotics and treatment of a pneumonia. CLINICAL COURSE: She was admitted to my services with IV antibiotics. She did rapidly defervesce. Her cough seemed to improve. Her diet was advanced. She tolerated this well. She was ambulatory in the hallway without significant dyspnea. At time of discharge, she was afebrile, tolerated diet. We felt she was stable for discharge. She will be discharged with antibiotics. She will followup with me in the office in one week. CLAU
== END 2019-05-10 18:20 | disposition home or self-care (01) | DRG 195 ==
LOC: ED 06:41 → MEDSURG B 09:11
PROVIDERS: ADMIT Family Medicine; ATTEND Family Medicine
DX: J18.9 Pneumonia, unspecified organism; K21.9 Gastro-esophageal reflux disease without esophagitis; R05 Cough; R50.9 Fever, unspecified